=== PATIENT | female | born 1965 | race Caucasian/White ===

== ENCOUNTER 2018-01-01 16:39 | Emergency (ER) | payer SELFPAY ==
[~2018-01-01] VITALS: Ht 160 cm; Wt 85.5 kg
[~2018-01-01 16:39] MED LIST: COL100 PO; FLA500 PO; FLEXERIL10 MG PO; LAC PO; LEVAQUIN750 MG PO; LISINOPRIL2.5 MG PO; MYL80 CH; NOR10T PO; ZESTRIL5 MG PO
[2018-01-01 16:46] VITALS: Ht 160 cm; Wt 85.5 kg
[2018-01-01 20:24] VITALS: BP 177/75
== END 2018-01-01 20:24 | disposition home or self-care (01) ==
LOC: ED 16:39
DX: M54.42 Lumbago with sciatica, left side (principal); I10 Essential (primary) hypertension
CPT/HCPCS: J1100; J1885